=== PATIENT | male | born 1990 | race Caucasian/White ===

== ENCOUNTER 2023-06-13 05:05 | Emergency (ER) | payer OTHER ==
[~2023-06-13] VITALS: Ht 167.6 cm; Wt 99.8 kg
[~2023-06-13 05:05] MED LIST: ACETAMINOPHEN500 MG PO; CIPROFLOXACIN500 MG PO; DOXYCYCLINE HY100 MG PO; IBUPROFEN600 MG PO; METRONIDAZOLE250 MG PO; OXYCODON-ACETA1 EAC2 PO
[2023-06-13 05:47] LABS: BASOPHILS 0.3 % (0-2); EOSINOPHILS 0.1 % (0-6); HEMATOCRIT 46.8 % (35.0-50.0); LYMPHOCYTES 18.1 % (24-44); MCH 29.1 (27-36); MCHC 34.1 g/dl (30-36); MCV 85.4 fl (81-99); MONOCYTES 8.3 % (0-12); NEUTROPHILS 73.2 % (39-80); PLATELET COUNT 410 K/uL (140-440); RBC 5.49 M/ul (4.3-5.7); RDW 14.1 (10.5-15.0)
[2023-06-13 06:02] LABS: ALBUMIN 4.3 g/dL (3.4-5.0); ALBUMIN/GLOBULIN RATIO 0.9 (1.1-2.4); ANION GAP 17.1 (7-21); BILIRUBIN, TOTAL 0.3 ng/dL (0.2-1.0); BUN/CREATININE RATIO 10.22 (6.0-28.6); CALCIUM 9.8 mg/dL (8.5-10.1); CREATININE, SERUM 0.88 mg/dL (0.70-1.30); POTASSIUM 4.1 mmol/L (3.5-5.1); PROTEIN, TOTAL 9.1 g/dL (6.4-8.2)
[2023-06-13] MEDS ORDERED: ONDANSETRON ODT8 MG PO (06:48)
[2023-06-13 08:52] VITALS: BP 133/95
== END 2023-06-13 08:55 | disposition home or self-care (01) ==
LOC: ED 05:05
PROVIDERS: Emergency Medicine
DX: K52.9 Noninfective gastroenteritis and colitis, unspecified (principal); I10 Essential (primary) hypertension; Z79.899 Other long term (current) drug therapy
CPT/HCPCS: 36415; 80053; 80307; 83690; 85025; J2405; J2765; J7030